=== PATIENT | female | born 1985 | race Caucasian/White ===

== ENCOUNTER 2017-08-25 18:15 | Observation (INO) | payer BC ==
--- NOTE | 2017-08-25 19:04 | SOAPPROG ---
SOAP Progress Note Assessment/Plan: Assessment: 32 yo WF @ 19.5 weeks gestation (EDC [birth year]) who is visiting from [place] presents with complaints of LOF. Negative pooling, negative ferning, grossly normal KARUNA, heart activity present, grossly normal bedside sonogram (posterior placenta), breech presentation, gross movements seen. Amnisure pending. Plan: Reassurance given. Patient will be discharged home with precautions after confirming negative Amnisure result. 08/25/17 19:01 Subjective: 32 yo WF @ 19.5 weeks gestational age presents with c/o light leakage of clear fluid throughout the day today. She is travelling from [place]. She has established care during this with the [facility]. She denies significant problems during current . G1 was complicated by spontaneous at ~7 weeks which resolved with expectant management. Objective: heart tones present on doppler (140) Pelvic exam: Amnisure swab obtained and sent to lab SSE: no pooling, no ferning, no abnormal discharge Bedside US (limited) performed: Viable male in breech position Grossly normal KARUNA Gross movements noted Posterior placenta Physical Exam - Physical Exam General Appearance: alert, no apparent distress Respiratory: lungs clear, normal breath sounds Cardiac/Chest: regular rate, rhythm Abdomen: non-tender, other (gravid, S=D) Pelvic Exam: other (SSE performed, no apparent pooling or ferning, no abnormal discharge) Extremities: non-tender, normal inspection Neuro/Psych: no motor/sensory deficits, alert, normal mood/affect, oriented x 3 ICD10 Worksheet Patient Problems: Problems Problem Status Onset Vaginal discharge during in second trimester Acute - ICD10 Problem Qualifiers (1) Vaginal discharge during in second trimester
== END 2017-08-25 19:26 | disposition home or self-care (01) ==
LOC: FLD 18:15
PROVIDERS: ADMIT Obstetrics & Gynecology Gynecology; ATTEND Obstetrics & Gynecology Gynecology
DX: Z03.71 Encounter for suspected problem with amniotic cavity and membrane ruled out (principal); Z3A.19 19 weeks gestation of pregnancy
CPT/HCPCS: G0378